=== PATIENT | male | born 1975 | race Caucasian/White ===

== ENCOUNTER 2017-09-05 01:55 | Inpatient (IN) | payer BC, OTHER ==
[~2017-09-05] VITALS: Ht 175.3 cm; Wt 68.5 kg
[2017-09-05] MEDS ORDERED: MIRALAX 17 GM POWD.PACK PO PRN (11:15)
[2017-09-05] MEDS ORDERED: ONDANSETRON 4 MG/2 ML VIAL IM PRN (11:15)
[2017-09-05] MEDS ORDERED: NICOTINE POLACRILEX 4 MG GUM-PK OF TEN BC PRN (11:15)
[2017-09-05] MEDS ORDERED: LORAZEPAM 1 MG TABLET PO PRN (11:15)
[2017-09-05] MEDS ORDERED: ONDANSETRON ODT 4 MG TAB.RAPDIS SL PRN (11:15)
[2017-09-05] MEDS ORDERED: NICOTINE 14 MG/24HR PATCH TD PRN (11:15)
[2017-09-05] MEDS ORDERED: ACETAMINOPHEN 325 MG TABLET PO PRN (11:15)
[2017-09-05] MEDS ORDERED: LOPERAMIDE HCL 2 MG CAPSULE PO PRN ×2 (11:15)
[2017-09-05] MEDS ORDERED: BUPRENORPHINE HCL 2 MG TAB.SUBL SL PRN (11:15)
[2017-09-05] MEDS ORDERED: MAG HYDROX/AL HYDROX/SIMETH 30 ML LIQUID UDC PO PRN (11:15)
[2017-09-05] MEDS ORDERED: HYDROXYZINE PAMOATE 25 MG CAPSULE PO PRN (11:15)
[2017-09-05] MEDS ORDERED: IBUPROFEN 600 MG TABLET PO PRN (11:15)
[2017-09-05] MEDS ORDERED: DICYCLOMINE HCL 20 MG TABLET PO PRN (11:15)
[2017-09-05] MEDS ORDERED: MAGNESIUM HYDROXIDE 30 ML LIQUID UDC PO PRN (11:15)
[2017-09-05 12:18] VITALS: BP 137/87
[2017-09-05 12:18] LABS: ALANINE AMINOTRANSFERASE 40 U/L (16-63); ALKALINE PHOSPHATASE 69 U/L (50-136); ASPARTATE AMINOTRANSFERASE 17 U/L (15-37); BASOPHILS % (AUTO) 0.4 % (0.0-2.0); BILIRUBIN,TOTAL 0.3 mg/dL (0.2-1.0); CARBON DIOXIDE 33 mmol/L (21-32); CHLORIDE 101 mmol/L (98-107); EOSINOPHILS % (AUTO) 0.3 % (0.0-7.0); GLUCOSE 98 mg/dL (74-106); HEMATOCRIT 47.6 % (36.7-47.1); HEMOGLOBIN 16.6 g/dL (12.5-16.3); LYMPHOCYTES # (AUTO) 1.8 K/uL (20.0-40.0); MAGNESIUM 2.6 mg/dL (1.8-2.4); MEAN CORPUSCULAR HEMOGLOBIN 31.6 uug (23.8-33.4); MEAN CORPUSCULAR HGB CONC 35 g/dL (32.5-36.3); MEAN CORPUSCULAR VOLUME 90.4 fL (73.0-96.2); MONOCYTES # (AUTO) 0.5 K/uL (2.0-10.0); MONOCYTES % (AUTO) 5.7 % (0.0-11.0); NEUTROPHILS # (AUTO) 6.6 K/uL (1.8-8.9); NEUTROPHILS % (AUTO) 73.6 % (38.5-71.5); PLATELET COUNT (AUTO) 360 K/uL (152-348); POTASSIUM 4.4 mmol/L (3.5-5.1); RED BLOOD CELL COUNT(AUTO) 5.26 MIL/uL (4.06-5.63); TOTAL PROTEIN, SERUM 8.4 g/dL (6.4-8.2); UREA NITROGEN, BLOOD 11 mg/dL (7-18); WHITE BLOOD COUNT (AUTO) 8.9 K/uL (3.6-10.2)
[2017-09-05 12:22] LABS: *AMPHETAMINE, URINE NEGATIVE (NEGATIVE); *BARBITURATE, URINE NEGATIVE (NEGATIVE); *CANNABINOID, URINE POSITIVE (NEGATIVE); *COCCAINE, URINE NEGATIVE (NEGATIVE); *OPIATE, URINE POSITIVE (NEGATIVE); *PHENCYCLIDINE SCREEN,URINE NEGATIVE (NEGATIVE)
[2017-09-05 12:28] LABS: ETHANOL < 3 MG/DL (0-0)
[2017-09-05 16:55] VITALS: BP 138/75
[2017-09-05 20:00] VITALS: BP 124/81
[2017-09-05] MEDS: GABAPENTIN 300 MG CAPSULE PO SCH (20:49)
[2017-09-05] MEDS: diphenhydrAMINE 50 MG CAPSULE PO PRN (21:02)
[2017-09-06] VITALS: BP 109/67
[2017-09-06 04:00] VITALS: BP 127/85
[2017-09-06 06:08] LABS: HEPATITIS B SURFACE AG Negative (Negative)
[2017-09-06 08:00] VITALS: BP_SYST 120; BP_SYST 127; BP_DIAS 76; BP_DIAS 78
[2017-09-06] MEDS: GABAPENTIN 300 MG CAPSULE PO SCH ×2 (08:43→20:10)
[2017-09-06] MEDS: BUPRENORPHINE HCL 2 MG TAB.SUBL SL SCH ×2 (08:53→21:00)
[2017-09-06] MEDS ORDERED: TUBERCULIN,PURIF.PROT.DERIV. 5 TU/0.1 ML TEST ID ONE (09:00)
[2017-09-06 12:00] VITALS: BP 134/83
[2017-09-06] MEDS ORDERED: BUPRENORPHINE HCL 2 MG TAB.SUBL SL PRN (12:00)
[2017-09-06 16:00] VITALS: BP_SYST 138; BP_SYST 144; BP_DIAS 114; BP_DIAS 96
[2017-09-06] MEDS: CLONIDINE HCL 0.1 MG TABLET PO PRN (17:09)
[2017-09-06 20:00] VITALS: BP 124/82
[2017-09-06] MEDS: METHOCARBAMOL 750 MG TABLET PO PRN (20:10)
[2017-09-06] MEDS: QUETIAPINE FUMARATE 25 MG TABLET PO SCH (20:10)
[2017-09-07] VITALS: BP 133/91
[2017-09-07] MEDS: METHOCARBAMOL 750 MG TABLET PO PRN ×2 (06:24→14:57)
[2017-09-07 08:00] VITALS: BP 120/78
[2017-09-07] MEDS: GABAPENTIN 300 MG CAPSULE PO SCH ×2 (08:31→20:39)
[2017-09-07] MEDS: BUPRENORPHINE HCL 2 MG TAB.SUBL SL SCH ×3 (09:00→20:40)
[2017-09-07 12:00] VITALS: BP 147/100
[2017-09-07] MEDS: CLONIDINE HCL 0.1 MG TABLET PO PRN (12:50)
[2017-09-07 16:00] VITALS: BP 133/95
[2017-09-07 20:00] VITALS: BP 137/94
[2017-09-07] MEDS: QUETIAPINE FUMARATE 25 MG TABLET PO SCH (20:40)
[2017-09-07] MEDS: CLONIDINE HCL 0.1 MG TABLET PO SCH (20:40)
[2017-09-08] VITALS: BP 116/72
[2017-09-08 04:00] VITALS: BP 121/79
[2017-09-08 08:00] VITALS: BP 138/81
[2017-09-08] MEDS ORDERED: BUPRENORPHINE HCL 2 MG TAB.SUBL SL SCH (09:00)
[2017-09-08] MEDS: METHOCARBAMOL 750 MG TABLET PO PRN ×2 (09:15→20:53)
[2017-09-08] MEDS: CLONIDINE HCL 0.1 MG TABLET PO SCH ×2 (09:15→20:53)
[2017-09-08] MEDS: GABAPENTIN 300 MG CAPSULE PO SCH ×2 (09:15→20:53)
[2017-09-08 12:00] VITALS: BP 127/90
[2017-09-08 16:00] VITALS: BP 139/88
[2017-09-08] MEDS ORDERED: CLON0.1T14 PO (19:48)
[2017-09-08] MEDS ORDERED: DICY20TA28 PO (19:48)
[2017-09-08] MEDS ORDERED: HYDR-3895 PO (19:48)
[2017-09-08] MEDS ORDERED: METH-406 PO (19:48)
[2017-09-08] MEDS ORDERED: GABA-534 PO (19:48)
[2017-09-08] MEDS ORDERED: DIPH50CA37 PO (19:48)
[2017-09-08] MEDS ORDERED: IBUP-1955 PO (19:48)
[2017-09-08 20:00] VITALS: BP 134/88
[2017-09-08] MEDS: diphenhydrAMINE 50 MG CAPSULE PO PRN (20:54)
[2017-09-08] MEDS: QUETIAPINE FUMARATE 25 MG TABLET PO SCH (20:54)
[2017-09-09 08:00] VITALS: BP 146/97
[2017-09-09 08:21] VITALS: BP 146/97
[2017-09-09] MEDS: CLONIDINE HCL 0.1 MG TABLET PO SCH (08:21)
[2017-09-09] MEDS: GABAPENTIN 300 MG CAPSULE PO SCH (08:22)
== END 2017-09-09 09:35 | disposition other institution (70) | DRG 895 ==
LOC: SRC 10:37
PROVIDERS: ADMIT Internal Medicine; ATTEND Internal Medicine
PROC: HZ2ZZZZ Detoxification Services for Substance Abuse Treatment (ICD-10-PCS; principal; 2017-09-05)
PROC: HZ31ZZZ Individual Counseling for Substance Abuse Treatment, Behavioral (ICD-10-PCS; 2017-09-07)
PROC: HZ41ZZZ Group Counseling for Substance Abuse Treatment, Behavioral (ICD-10-PCS; 2017-09-07)
DX: F11.23 Opioid dependence with withdrawal (principal); E87.3 Alkalosis; I49.5 Sick sinus syndrome; G89.29 Other chronic pain; Z81.1 Family history of alcohol abuse and dependence; Z81.8 Family history of other mental and behavioral disorders; E86.0 Dehydration; F17.220 Nicotine dependence, chewing tobacco, uncomplicated; M54.40 Lumbago with sciatica, unspecified side; F12.90 Cannabis use, unspecified, uncomplicated; I15.9 Secondary hypertension, unspecified; G47.00 Insomnia, unspecified
CPT/HCPCS: 36415; 70030-TC; 80307; 80349; 80361; 83735; 85025; 86592; 86705; 86803; 87340; 87806; A4663; G0480; Q0163